=== PATIENT | male | born 1965 | race American Indian/Alaskan Native ===

== ENCOUNTER 2021-02-10 13:17 | Emergency (ER) | payer OTHER ==
--- NOTE | 2021-02-10 14:48 | Event Note ---
ED Screening Note Date of service: 02/10/21 Time: 14:47 ED Screening Note: 55-year-old male with a past medical history of hyperlipidemia presents to the ER today with complaints of feeling bad since last night. He states that he started feeling dizzy and generally weak last night. He checked his blood pressure at work and he was told by the coworkers it was high. He denies any past history of hypertension. This initial assessment/diagnostic orders/clinical plan/treatment(s) is/are subject to change based on patients health status, clinical progression and re- assessment by fellow clinical providers in the ED. Further treatment and workup at subsequent clinical providers discretion. Patient/guardian urged not to elope from the ED as their condition may be serious if not clinically assessed and managed. Initial orders include: Labs/chest x-ray/EKG
[2021-02-10 15:32] LABS: Basophils # (Auto) 0.1 K/mm3 (0.0-0.1); Basophils % (Auto) 0.9 % (0.0-1.8); Eosinophils # (Auto) 0.1 K/mm3 (0.0-0.4); Hematocrit 44.2 % (35.5-45.6); Hemoglobin 14.8 gm/dl (11.8-15.2); Lymphocytes # (Auto) 1.7 K/mm3 (1.2-5.4); Lymphocytes % (Auto) 27.5 % (13.4-35.0); Mean Corpuscular HGB Conc 34 % (32-34); Mean Corpuscular Volume 85 fl (84-94); Monocytes # (Auto) 0.3 K/mm3 (0.0-0.8); Monocytes % (Auto) 5.4 % (0.0-7.3); Platelet Count 242 K/mm3 (140-440); Red Cell Distribution Width 14.7 % (13.2-15.2)
--- NOTE | 2021-02-10 15:38 | XRay Report ---
CHEST 2 VIEWS INDICATION / CLINICAL INFORMATION: Chest Pain. COMPARISON: None available. FINDINGS: SUPPORT DEVICES: None. HEART / MEDIASTINUM: No significant abnormality. LUNGS / PLEURA: No significant pulmonary abnormality. No significant pleural effusion. No pneumothora x. ADDITIONAL FINDINGS: No significant additional findings. IMPRESSION: 1. No significant abnormality of the chest. Signer Name: Tyler Mart MD Signed: 02/10/2021 3:33 PM Workstation Name: [id number]
[2021-02-10 15:40] LABS: INR 0.96 (0.87-1.13)
[2021-02-10 15:41] LABS: Partial Thromboplastin Time 29.6 Sec. (24.2-36.6)
[2021-02-10 15:46] LABS: Alanine Aminotransferase 32 units/L (7-56); Albumin 4.3 g/dL (3.9-5); BUN/Creatinine Ratio 15; Blood Urea Nitrogen 12 mg/dL (9-20); Calcium 9.7 mg/dL (8.4-10.2); Hemolysis Index 14
--- NOTE | 2021-02-10 22:03 | Emergency Department Report ---
HPI - General Chief Complaint: High BP Time Seen by Provider: 02/10/21 19:46 - HPI HPI: 55-year-old male with no known past medical history presents complaining of dizziness and generalized weakness since last night. He says that around 9 PM last night he began to notice that he felt dizzy with the room spinning towards his left. He says that it is not present all of the time but he does not know what makes it come on or come off. He has not tried anything for symptoms. Other than the dizziness and generalized weakness he denies any associated h eadache, vision change, and neck stiffness/pain, back pain, chest pain, shortness of breath, abdominal pain, nausea/vomiting, focal weakness, sensory changes, or any other complaints. ED Past Medical Hx - Past Medical History Previous Medical History?: No ED Review of Systems ROS: Stated complaint: DIZZY/WEAK/BP HIGH Other details as noted in HPI Constitutional: denies: chills, fever Eyes: denies: eye pain, vision change ENT: denies: throat pain, congestion Respiratory: denies: cough, shortness of breath Cardiovascular: denies: chest pain, palpitations Gastrointestinal: denies: abdominal pain, nausea, vomiting Genitourinary: denies: dysuria, frequency Musculoskeletal: denies: back pain, joint swelling Skin: denies: rash Neurological: weakness, other (dizziness). denies: headache Physical Exam - Physical Exam Vital Signs: Vital Signs 02/10/21 02/10/21 02/10/21 13:22 20:25 20:45 Temperature 97.7 F 97.8 F Pulse Rate 79 61 63 Respiratory 18 22 19 Rate Blood Pressure 135/96 Blood Pressure 175/97 128/92 [Right] O2 Sat by Pulse 99 97 Oximetry 02/10/21 21:01 Temperature Pulse Rate 59 L Respiratory 19 Rate Blood Pressure 147/85 Blood Pressure [Right] O2 Sat by Pulse 96 Oximetry Physical Exam: GENERAL: Well developed and well nourished. No acute distress HEENT: Normocephalic. No obvious signs of trauma. Moist mucous membranes. EYES: Extraocular movements are intact. Pupils are equal round and reactive to light bilaterally. There is minimal horizontal nystagmus bilaterally. NECK: Supple. Trachea is midline. LUNGS: Nonlabored breathing. Equal chest rise bilaterally. Clear to auscultation bilaterally. HEART/CARDIOVASCULAR: Regular rate and rhythm. No murmurs or rubs. VASCULAR: 2+ peripheral pulses. ABDOMEN: Abdomen is soft and nondistended. There is no significant tenderness, guarding or rebound. SKIN: Skin is warm and dry NEURO: Patient is awake, alert, and oriented. lubrication technician II-XII grossly intact. Normal sensory exam throughout. There is normal strength in all four extremities with the exception of very mild left sided UE drift. There is also left UE dysmetria. Normal speech. Normal heel to goodman. NIHSS 2. MUSCULOSKELETAL: No obvious deformities. No significant tenderness. Normal ROM throughout. ED Course Vital Signs 02/10/21 02/10/21 02/10/21 13:22 20:25 20:45 Temperature 97.7 F 97.8 F Pulse Rate 79 61 63 Respiratory 18 22 19 Rate Blood Pressure 135/96 Blood Pressure 175/97 128/92 [Right] O2 Sat by Pulse 99 97 Oximetry 02/10/21 21:01 Temperature Pulse Rate 59 L Respiratory 19 Rate Blood Pressure 147/85 Blood Pressure [Right] O2 Sat by Pulse 96 Oximetry ED Medical Decision Making - Lab Data Result diagrams: 02/10/21 14:59 02/10/21 14:59 Lab Results 02/10/21 02/10/21 02/10/21 Range/Units 14:59 14:59 14:59 WBC 6.1 (4.5-11.0) K/mm3 RBC 5.20 H (3.65-5.03) M/mm3 Hgb 14.8 (11.8-15.2) gm/dl Hct 44.2 (35.5-45.6) % MCV 85 (84-94) fl MCH 29 (28-32) pg MCHC 34 (32-34) % RDW 14.7 (13.2-15.2) % Plt Count 242 (140-440) K/mm3 Lymph % (Auto) 27.5 (13.4-35.0) % [place] % (Auto) 5.4 (0.0-7.3) % Eos % (Auto) 1.0 (0.0-4.3) % Baso % (Auto) 0.9 (0.0-1.8) % Lymph # (Auto) 1.7 (1.2-5.4) K/mm3 [place] # (Auto) 0.3 (0.0-0.8) K/mm3 Eos # (Auto) 0.1 (0.0-0.4) K/mm3 Baso # (Auto) 0.1 (0.0-0.1) K/mm3 Seg Neutrophils % 65.2 (40.0-70.0) % Seg Neutrophils # 3.9 (1.8-7.7) K/mm3 PT 13.3 (12.2-14.9) Sec. INR 0.96 (0.87-1.13) APTT 29.6 (24.2-36.6) Sec. Thrombin Time (15.1-19.6) Sec. Sodium 137 (137-145) mmol/L Potassium 3.8 (3.6-5.0) mmol/L Chloride 103.2 (98-107) mmol/L Carbon Dioxide 23 (22-30) mmol/L Anion Gap 15 mmol/L BUN 12 (9-20) mg/dL Creatinine 0.8 (0.8-1.3) mg/dL Estimated GFR > 60 ml/min BUN/Creatinine Ratio 15 % Glucose 110 H (75-100) mg/dL POC Glucose (70-105) mg/dL Calcium 9.7 (8.4-10.2) mg/dL Total Bilirubin 0.30 (0.1-1.2) mg/dL AST 30 (5-40) units/L ALT 32 (7-56) units/L Alkaline Phosphatase 99 (35-129) units/L Total Creatine Kinase (55-170) units/L CK-MB (CK-2) (0.0-4.0) ng/mL CK-MB (CK-2) Rel Index (0-4) Troponin T < 0.010 (0.00-0.029) ng/mL Total Protein 7.9 (6.3-8.2) g/dL Albumin 4.3 (3.9-5) g/dL Albumin/Globulin Ratio 1.2 % Lipase 48 (13-60) units/L 02/10/21 02/10/21 02/10/21 Range/Units 20:32 21:45 21:45 WBC (4.5-11.0) K/mm3 RBC (3.65-5.03) M/mm3 Hgb (11.8-15.2) gm/dl Hct (35.5-45.6) % MCV (84-94) fl MCH (28-32) pg MCHC (32-34) % RDW (13.2-15.2) % Plt Count (140-440) K/mm3 Lymph % (Auto) (13.4-35.0) % [place] % (Auto) (0.0-7.3) % Eos % (Auto) (0.0-4.3) % Baso % (Auto) (0.0-1.8) % Lymph # (Auto) (1.2-5.4) K/mm3 [place] # (Auto) (0.0-0.8) K/mm3 Eos # (Auto) (0.0-0.4) K/mm3 Baso # (Auto) (0.0-0.1) K/mm3 Seg Neutrophils % (40.0-70.0) % Seg Neutrophils # (1.8-7.7) K/mm3 PT 14.1 (12.2-14.9) Sec. INR 1.04 (0.87-1.13) APTT 28.9 (24.2-36.6) Sec. Thrombin Time 17.4 (15.1-19.6) Sec. Sodium (137-145) mmol/L Potassium (3.6-5.0) mmol/L Chloride (98-107) mmol/L Carbon Dioxide (22-30) mmol/L Anion Gap mmol/L BUN (9-20) mg/dL Creatinine (0.8-1.3) mg/dL Estimated GFR ml/min BUN/Creatinine Ratio % Glucose (75-100) mg/dL POC Glucose (70-105) mg/dL Calcium (8.4-10.2) mg/dL Total Bilirubin (0.1-1.2) mg/dL AST (5-40) units/L ALT (7-56) units/L Alkaline Phosphatase (35-129) units/L Total Creatine Kinase 459 H (55-170) units/L CK-MB (CK-2) 4.8 H (0.0-4.0) ng/mL CK-MB (CK-2) Rel Index 1.0 (0-4) Troponin T < 0.010 < 0.010 (0.00-0.029) ng/mL Total Protein (6.3-8.2) g/dL Albumin (3.9-5) g/dL Albumin/Globulin Ratio % Lipase (13-60) units/L 02/10/ Range/Units 22:37 WBC (4.5-11.0) K/mm3 RBC (3.65-5.03) M/mm3 Hgb (11.8-15.2) gm/dl Hct (35.5-45.6) % MCV (84-94) fl MCH (28-32) pg MCHC (32-34) % RDW (13.2-15.2) % Plt Count (140-440) K/mm3 Lymph % (Auto) (13.4-35.0) % [place] % (Auto) (0.0-7.3) % Eos % (Auto) (0.0-4.3) % Baso % (Auto) (0.0-1.8) % Lymph # (Auto) (1.2-5.4) K/mm3 [place] # (Auto) (0.0-0.8) K/mm3 Eos # (Auto) (0.0-0.4) K/mm3 Baso # (Auto) (0.0-0.1) K/mm3 Seg Neutrophils % (40.0-70.0) % Seg Neutrophils # (1.8-7.7) K/mm3 PT (12.2-14.9) Sec. INR (0.87-1.13) APTT (24.2-36.6) Sec. Thrombin Time (15.1-19.6) Sec. Sodium (137-145) mmol/L Potassium (3.6-5.0) mmol/L Chloride (98-107) mmol/L Carbon Dioxide (22-30) mmol/L Anion Gap mmol/L BUN (9-20) mg/dL Creatinine (0.8-1.3) mg/dL Estimated GFR ml/min BUN/Creatinine Ratio % Glucose (75-100) mg/dL POC Glucose 109 H (70-105) mg/dL Calcium (8.4-10.2) mg/dL Total Bilirubin (0.1-1.2) mg/dL AST (5-40) units/L ALT (7-56) units/L Alkaline Phosphatase (35-129) units/L Total Creatine Kinase (55-170) units/L CK-MB (CK-2) (0.0-4.0) ng/mL CK-MB (CK-2) Rel Index (0-4) Troponin T (0.00-0.029) ng/mL Total Protein (6.3-8.2) g/dL Albumin (3.9-5) g/dL Albumin/Globulin Ratio % Lipase (13-60) units/L - EKG Data -: EKG Interpreted by Al - EKG Data 02/10/21 22:02 Normal sinus rhythm. Normal intervals. Normal axis. Early repolarization noted. LVH changes. Otherwise no significant ST segment or T wave abno rmalities. 02/10/21 22:03 - Radiology Data T head/brain wo con INDICATION / CLINICAL INFORMATION: 55 years Male; CODE STROKE PROTOCOL!!! Stroke-Like symptoms. TECHNIQUE: Routine CT head without contrast. All CT scans at this location are performed using CT dose reduction for ALARA by means of automated exposure control. COMPARISON: None. FINDINGS: BRAIN / INTRACRANIAL CONTENTS: Large sized lacunar infarct is seen in the anterior thalamic region on the right which appears to be acute/subacute in age. No associated hemorrhage. Otherwise, no acute hemorrhage, mass effect, midline shift, hydrocephalus, or acute, large territorial infarct. No signs of significant atrophy or chronic infarct. Minimal, nonspecific white matter disease suggested. CRANIOCERVICAL JUNCTION: No significant abnormality. ORBITS: No significant abnormality of visualized orbits. SINUSES / MASTOIDS: There is a small, focal dehiscence of lamina papyracea on the right, which should be of no clinical significance. ADDITIONAL FINDINGS: Atherosclerotic disease is seen in the anterior circulation. IMPRESSION: 1. Acute/subacute lacunar infarcts seen in the anterior thalamic region on the right without signs of hemorrhagic transformation. CODE STROKE: Exam Completed (MARKING MACHINE OPERATOR/CDT): 02/10/2021 8:47 PM Exam Reviewed (MARKING MACHINE OPERATOR/CDT): 9:05 PM Time of Communication (MARKING MACHINE OPERATOR/CDT): 9:12 PM Licensed Practitioner Receiving Report: Dr. Morales Signer Name: Timo Doss MD, III Signed: 02/10/2021 9:12 PM Workstation Name: [email or web address] - Medical Decision Making 55-year-old male presenting with room spinning dizziness towards the left and generalized weakness since 9 PM last night. He is afebrile with normal vital signs other than elevated blood pressure. Labs were drawn in triage and revealed no significant leukocytosis or anemia. There are no significant electrolyte abnormalities. On my exam however, he has very mild left upper extremity drift as well as left upper extremity dysmetria on [id number] testing. For this reason I have ordered a teleneurology consult. After speaking with Dr. Helm of teleneurology, I have ordered a full stroke alert order set including Noncon CT of the head. Dr. Helm also feels that the patient may be experiencing an acute posterior stroke and recommends Noncon CT. If there is no evidence of hemorrhage she recommends aspirin 325 and atorvastatin 80 mg with admission for MRI of the head as well as MRA of the head and neck. Not a candidate for tPA given last known normal time being almost 24 hours ago. At 10:10 PM I received a call from Dr. Doss of radiology who reviewed CT of the head and states that there is an acute right sided anterior thalamic lacunar infarct which is consistent with the patient's symptoms. There is no evidence of intracranial hemorrhage. Aspirin and atorvastatin were ordered. The patient is a [facility] patient and therefore call was placed to [facility] to determine whether they wish to transfer the patient. At 10:35 PM I spoke with Dr. Estevez regarding the patient's case. She says that they will accept him for transfer at [facility] with the accepting doctor being Dr. Thompson. All this was discussed with the patient who expressed understanding and agreement with the plan of care. Critical care attestation.: If time is entered above; I have spent that time in minutes in the direct care of this critically ill patient, excluding procedure time. ED Disposition Clinical Impression: Stroke, Dizziness Disposition: DC/TX-70 ANOTHER TYPE HLTHCARE Is pt being admited?: No Condition: Stable Referrals: PRIMARY CARE, [Primary Care Provider] - 3-5 Days
[2021-02-10 22:04] LABS: INR 1.04 (0.87-1.13); Partial Thromboplastin Time 28.9 Sec. (24.2-36.6); Thrombin Time 17.4 Sec. (15.1-19.6)
[2021-02-10] MEDS ORDERED: ASPIRIN 325 MG TAB PO ONE (22:10)
[2021-02-10 22:11] LABS: Creatine Kinase MB 4.8 ng/mL (0.0-4.0)
--- NOTE | 2021-02-10 22:17 | Cat Scan Report ---
CT head/brain wo con INDICATION / CLINICAL INFORMATION: 55 years Male; CODE STROKE PROTOCOL!!! Stroke-Like symptoms. TECHNIQUE: Routine CT head without contrast. All CT scans at this location are performed using CT dos e reduction for ALARA by means of automated exposure control. COMPARISON: None. FINDINGS: BRAIN / INTRACRANIAL CONTENTS: Large sized lacunar infarct is seen in the anterior thalamic region on the right which appears to be acute/subacute in age. No associated hemorrhage. Otherwise, no acute hemorrhage, mass effect, midline shift, hydrocephalus, or acute, large territori al infarct. No signs of significant atrophy or chronic infarct. Minimal, nonspecific white matter dis ease suggested. CRANIOCERVICAL JUNCTION: No significant abnormality. ORBITS: No significant abnormality of visualized orbits. SINUSES / MASTOIDS: There is a small, focal dehiscence of lamina papyracea on the right, which should be of no clinical significance. ADDITIONAL FINDINGS: Atherosclerotic disease is seen in the anterior circulation. IMPRESSION: 1. Acute/subacute lacunar infarcts seen in the anterior thalamic region on the right without signs of hemorrhagic transformation. CODE STROKE: Exam Completed (SALES PROJECT MANAGER/CDT): 02/10/2021 8:47 PM Exam Reviewed (SALES PROJECT MANAGER/CDT): 9:05 PM Time of Communication (SALES PROJECT MANAGER/CDT): 9:12 PM Licensed Practitioner Receiving Report: Dr. Morales Signer Name: Timo Doss MD, III Signed: 02/10/2021 10:12 PM Workstation Name: [id number]
--- NOTE | 2021-02-10 22:21 | Consultation ---
History of Present Illness History of present illness: [facility] Tel[facility]rology Consult Note # Demographics Consult Type: General Neurology Patient Location: Emergency Room First Name: Alton Last Name: Adrian Date of : 1965 Age: 55 Gender: Male Time of Initial Page ( Time): 02/10/2021, 21:18 Time of Return Call ( Time): 02/10/2021, 21:18 # HPI Chief Complaint: dizziness History: 55M with DM presents with dizziness and bilateral arm dysmetria. Dizziness started at 2100 evening prior. In ED, has horizontal nystagmus and left > right dysmetria. # Scores Time of exam and NIHSS ( Time): 02/10/2021, 21:23 Level of Consciousness 1a: [0] = Alert; keenly responsive LOC Questions 1b: [0] = Answers both questions correctly LOC Commands 1c: [0] = Performs both tasks correctly Best Gaze 2: [0] = Normal Visual 3: [0] = No visual loss Facial Palsy 4: [0] = Normal symmetrical movements Motor Arm Left 5a: [1] = Drift Motor Arm Right 5b: [0] = No drift Motor Leg Left 6a: [0] = No drift Motor Leg Right 6b: [0] = No drift Limb Ataxia 7: [0] = Absent Sensory 8: [0] = Normal Best Language 9: [0] = No aphasia Dysarthria 10: [0] = Normal Extinction and Inattention 11: [0] = No abnormality NIHSS Total: 1 # Data Time Head CT personally read by me ( Time): 02/10/2021, 22:[address]: per radiologist read right thalamic stroke # Assessment Impression: Ischemic Stroke (Acute) # Plan Thrombolytic/Intervention: NOT IV Thrombolytic or IA Intervention Thrombolytic Exclusion: > 4.5 hours Intraarterial Exclusion: clinically consistent with small vessel disease Target Blood Pressure: SBP < 220 DBP < 105 Labs: hemoglobin A1c lipid panel Imaging: (urgency: routine): MR Angiogram Head without contrast MR Angiogram Neck with contrast MRI Brain without contrast Diagnostic Test: echo with bubble study Therapy/Evaluation: PT/OT evaluation Medication: ASA 325 then 81 daily, atorvastatin 80 and tailor daily dose to LDL < 70 goal DVT Prophylaxis: SCD chemical DVT prophylaxis Other: permissive hypertension telemetry monitoring I have discussed my recommendations with the referring provider Additional Recommendations: if < 50% stenosis of cervical ICA, would start Plavix 300 x1 then 75 daily x3 weeks (3 weeks DAPT then ASA monotherapy) Disposition: admit # Logistics Telemedicine: Interactive 2 way audio and visual telecommunication technology was utilized during this visit Electronically signed at 02/10/2021 22:21 (Eastern Time) by Lloyd Helm MD Medications and Allergies Allergies Allergy/AdvReac Type Severity Reaction Status Date / Time No Known Allergies Allergy Verified 02/10/21 22:12 Active Meds: Active Medications Atorvastatin Calcium (Atorvastatin 40 Mg Tab) 80 mg PO QHS YUE Physical Examination - Vital Signs Vital Signs: Vital Signs Temp Pulse Resp BP Pulse Ox 97.7 F 79 18 175/97 99 02/10/21 13:22 02/10/21 13:22 02/10/21 13:22 02/10/21 13:22 02/10/21 13:22 Results - Laboratory Findings CBC and BMP: 02/10/21 14:59 02/10/21 14:59 Abnormal Lab Findings: Abnormal Labs 02/10/21 02/10/21 02/10/21 14:59 14:59 21:45 RBC 5.20 H Glucose 110 H Total Creatine Kinase 459 H CK-MB (CK-2) 4.8 H
[2021-02-11 03:15] VITALS: BP 109/75
--- NOTE | 2021-02-19 10:45 | Electrocardiograph Report ---
[facility] Test Date: 2021-02-10 Test Time: 14:57:26 Pat Name: JOHNNY YUEN Department: Room: Gender: M Supervisor Finishing Department: [facility] : 1965 Requested By: HENRI WALLER Order Number: [id number] Reading MD: Dyllan Escudero Measurements Intervals [place] Rate: 69 P: 46 MS: 178 QRS: 51 QRSD: 91 T: 31 QT: 385 QTc: 413 Interpretive Statements Sinus rhythm Consider left ventricular hypertrophy No previous ECG available for comparison Electronically Signed On 02-19-2021 10:44:41 EDT by Dyllan Escudero
== END 2021-02-11 03:15 | disposition other institution (70) ==
LOC: ED 13:17
DX: I63.9 Cerebral infarction, unspecified (principal)
CPT/HCPCS: 36415; 70450; 71046; 80053; 82550; 82553; 82962; 83690; 84484; 85025; 85610; 85670; 85730; 93005; 99285